=== PATIENT | female | born 1955 | race Caucasian/White ===

== ENCOUNTER 2020-09-17 19:26 | Emergency (ER) | payer MEDICAID ==
[~2020-09-17] VITALS: Ht 162.6 cm; Wt 90.3 kg
--- NOTE | 2020-09-17 19:45 | NUR ---
PT PRESENTS TO THE ER FOR ABDOMINAL PAIN, PT STATES "MY VAGINA IS STICKING OUT AND I HAVE BLOOD OUT OF MY RECTUM WHEN I WIPE", PT SPEAKS VERY FAST AND TENDS TO GO OFF TANGENT WHEN ASKED ANY QUESTIONS, PT HAD A VISIT AT [facility] YESTERDAY AND STATES SHE DOES NOT BELEIVE THE WORK UP THEY DID WAS ACCURATE OR CORRECT. PT STATES SHE JUST GOT TO [place] FROM [place] AND DOES NOT HAVE A PRIMARY CARE PROVIDER AT THIS TIME. MD AT BEDSIDE FOR ASSESMENT AND TO DISCUSS POC
[2020-09-17 20:36] LABS: MICROSCOPIC NOT IND
[2020-09-17 20:43] LABS: BASOPHILS % (AUTO) 1 % (0-1); EOSINOPHILS % (AUTO) 2 % (1-7); LYMPHOCYTES % (AUTO) 29 % (22-44); MEAN CORPUSCULAR HEMOGLOBIN 26.8 pg (27.0-34.8); MEAN CORPUSCULAR HGB CONC 32.1 g/dL (32.4-35.8); MEAN PLATELET VOLUME 7.9 fL (7.4-10.4); MONOCYTES % (AUTO) 8 % (2-9); NEUTROPHILS % (AUTO) 61 % (42-75); PLATELET COUNT 280 x10^3/uL (130-400); RED BLOOD COUNT 4.21 x10^6/uL (3.82-5.3); RED CELL DISTRIBUTION WIDTH 15.2 % (9.6-15.2)
[2020-09-17 20:45] LABS: ALANINE AMINOTRANSFERASE 21 U/L (12-78); ALBUMIN 3.3 g/dL (3.4-5.0); ANION GAP 4 mmol/L (5-15); CALCIUM 9.2 mg/dL (8.5-10.1); CHLORIDE 109 mmol/L (98-107)
[2020-09-17 20:48] LABS: ALKALINE PHOSPHATASE 83 U/L (45-117); BILIRUBIN,TOTAL 0.2 mg/dL (0.2-1.0); CREATININE 0.98 mg/dL (0.55-1.02)
--- NOTE | 2020-09-17 21:04 | NUR ---
PT LAYING IN BED, A/OX4, ALL NEEDS IN REACH, CALL LIGHT IN REACH, NAD AT THIS TIME, VSS
[2020-09-17] MEDS ORDERED: KETOROLAC 30 MG/1 ML IM ONE (21:30)
[2020-09-17] MEDS ORDERED: KETOROLAC 60 MG/2 ML ONE (21:30)
[2020-09-17 21:41] VITALS: BP 117/69
--- NOTE | 2020-09-17 21:53 | NUR ---
PT GIVEN A BUS PASS TO ASSIST IN TRAVELING AROUND, PT AMBULATED WELL ON HER OWN, PT GIVEN REFERRAL, PT A/OX4
== END 2020-09-17 22:11 | disposition home or self-care (01) ==
LOC: ED 21:30
DX: R10.84 Generalized abdominal pain (principal)
CPT/HCPCS: 36415; 74176; 80053; 81003; 83690; 85025; 96372; 99284; J1885

== ENCOUNTER 2020-09-18 03:56 | Emergency (ER) | payer MEDICAID ==
[~2020-09-18] VITALS: Ht 165.1 cm; Wt 90.0 kg
[2020-09-18] MEDS ORDERED: ONDANSETRON ODT 4 MG ONE (05:23)
[2020-09-18] MEDS ORDERED: MAALOX/HYOSCYAMINE/LIDOCAINE 45 ML BTL ONE (05:23)
[2020-09-18] MEDS ORDERED: ONDANSETRON ODT 4 MG PO ONE (05:30)
[2020-09-18] MEDS ORDERED: MAALOX/HYOSCYAMINE/LIDOCAINE 45 ML BTL PO ONE (05:30)
--- NOTE | 2020-09-18 05:32 | NUR ---
pt presents to ed with upper abd pain, pt in gown, resting on gurney, and placed on continuous monitoring, erp at bedside
[2020-09-18 06:06] LABS: BASOPHILS % (AUTO) 1 % (0-1); EOSINOPHILS % (AUTO) 3 % (1-7); LYMPHOCYTES % (AUTO) 27 % (22-44); MEAN CORPUSCULAR HEMOGLOBIN 28.1 pg (27.0-34.8); MEAN CORPUSCULAR HGB CONC 33.7 g/dL (32.4-35.8); MEAN PLATELET VOLUME 7.9 fL (7.4-10.4); MONOCYTES % (AUTO) 7 % (2-9); NEUTROPHILS % (AUTO) 62 % (42-75); PLATELET COUNT 259 x10^3/uL (130-400); RED BLOOD COUNT 4.06 x10^6/uL (3.82-5.3); RED CELL DISTRIBUTION WIDTH 15.1 % (9.6-15.2)
[2020-09-18 06:07] VITALS: BP 109/57
--- NOTE | 2020-09-18 06:08 | NUR ---
pt resting on guranuja, denies needs at this time
[2020-09-18 06:17] LABS: ALANINE AMINOTRANSFERASE 21 U/L (12-78); ALBUMIN 3.2 g/dL (3.4-5.0); ANION GAP 4 mmol/L (5-15); CALCIUM 8.9 mg/dL (8.5-10.1); CHLORIDE 108 mmol/L (98-107); CREATININE 1.03 mg/dL (0.55-1.02)
[2020-09-18 06:19] LABS: ALKALINE PHOSPHATASE 79 U/L (45-117); BILIRUBIN,TOTAL 0.3 mg/dL (0.2-1.0); TOTAL PROTEIN 6.8 g/dL (6.4-8.2)
--- NOTE | 2020-09-18 07:01 | NUR ---
Patient given discharge instructions and they have confirmed that they understand the instructions. Patient ambulatory with steady gait.
== END 2020-09-18 07:03 | disposition home or self-care (01) ==
LOC: ED 05:28
DX: K29.00 Acute gastritis without bleeding (principal); R11.0 Nausea; F17.200 Nicotine dependence, unspecified, uncomplicated
CPT/HCPCS: 36415; 80053; 83690; 85025; 99283; Q0162

== ENCOUNTER 2020-09-22 03:46 | Emergency (ER) | payer MEDICAID ==
[~2020-09-22] VITALS: Ht 162.6 cm; Wt 92.5 kg
[2020-09-22 03:54] VITALS: BP 148/86
[2020-09-22] MEDS ORDERED: ONDANSETRON ODT 4 MG ONE (04:17)
[2020-09-22] MEDS ORDERED: ONDANSETRON ODT 4 MG PO ONE (04:30)
[2020-09-22 04:33] LABS: BASOPHILS % (AUTO) 1 % (0-1); EOSINOPHILS % (AUTO) 2 % (1-7); LYMPHOCYTES % (AUTO) 25 % (22-44); MEAN CORPUSCULAR HEMOGLOBIN 27.4 pg (27.0-34.8); MEAN CORPUSCULAR HGB CONC 33.1 g/dL (32.4-35.8); MEAN PLATELET VOLUME 7.8 fL (7.4-10.4); MONOCYTES % (AUTO) 8 % (2-9); NEUTROPHILS % (AUTO) 65 % (42-75); PLATELET COUNT 295 x10^3/uL (130-400); RED BLOOD COUNT 4.43 x10^6/uL (3.82-5.3); RED CELL DISTRIBUTION WIDTH 15.3 % (9.6-15.2)
[2020-09-22 04:44] LABS: ALANINE AMINOTRANSFERASE 20 U/L (12-78); ALBUMIN 3.3 g/dL (3.4-5.0); ANION GAP 4 mmol/L (5-15); CALCIUM 9.4 mg/dL (8.5-10.1); CHLORIDE 106 mmol/L (98-107); CREATININE 0.96 mg/dL (0.55-1.02)
[2020-09-22 04:48] LABS: ALKALINE PHOSPHATASE 80 U/L (45-117); BILIRUBIN,TOTAL 0.3 mg/dL (0.2-1.0); TOTAL PROTEIN 7.1 g/dL (6.4-8.2); TROPONIN I < 0.015 ng/mL (0.000-0.045)
[2020-09-22] MEDS ORDERED: ACETAMINOPHEN 325 MG TABLET ONE (05:13)
--- NOTE | 2020-09-22 05:21 | NUR ---
Medicated patient per mar. Patient upset with her care and walked out yelling.
[2020-09-22] MEDS ORDERED: ACETAMINOPHEN 325 MG TABLET PO ONE (05:30)
== END 2020-09-22 05:22 | disposition left against medical advice (07) ==
LOC: ED 05:15
DX: R11.2 Nausea with vomiting, unspecified (principal); R10.13 Epigastric pain; R10.10 Upper abdominal pain, unspecified; R31.9 Hematuria, unspecified; F17.200 Nicotine dependence, unspecified, uncomplicated
CPT/HCPCS: 36415; 80053; 83690; 84484; 85025; 99283; Q0162